=== PATIENT | male | born 1990 | race Caucasian/White ===

== ENCOUNTER 2016-11-28 13:04 | Emergency (ER) | payer MEDICAID ==
[2016-11-28 13:15] VITALS: RESP 16
--- NOTE | 2016-11-28 14:14 | EDPHY ---
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 marieor. He states that he had a high stress semester last week and a 4.0. He went home to [place] however states this g a who stated that she was trying to kill herself in his trying to get off Adderall. He states that this was very traumatic for him. He states that they have a she could room in her house that he was trying to conceal. He also states that he has had multiple arrests and trouble with the low when he was younger and this is prohibiting him from obtaining gainful employment. He states that in assisted they made him take lithium but he is not sure why. He denies suicidality or homicidality. He denies recent drug or alcohol ingestion. REVIEW OF SYSTEMS: Constitutional: Anxiety EENTM: denies: blurred vision, double vision, nose congestion Respiratory: denies: cough, shortness of breath Cardiac: denies: chest pain, irregular heart rate, lightheadedness, palpitations Gastrointestinal/Abdominal: denies: abdominal pain, diarrhea, nausea, vomiting, blood streaked stools Genitourinary: denies: dysuria, frequency, hematuria, pain Musculoskeletal: denies: joint pain, muscle pain Skin: denies: lesions, rash, jaundice, bruising Neurological: denies: headache, numbness, paresthesia, tingling, dizziness, weakness Hematologic/Lymphatic: denies: blood clots, easy bleeding, easy bruising Immunologic/allergic: denies: HIV/AIDS, transplant EXAM: GENERAL: Well-appearing, well-nourished HEAD: Atraumatic, normocephalic. EYES: Pupils equal round and reactive to light, extraocular movements intact, sclera anicteric, conjunctiva are normal. ENT: TMs normal, nares patent, oropharynx clear without exudates. Moist mucous membranes. NECK: Normal range of motion, supple without lymphadenopathy or JVD. LUNGS: Breath sounds clear to auscultation bilaterally and equal. No wheezes rales or rhonchi. HEART: Regular rate and rhythm without murmurs, rubs or gallops. ABDOMEN: Soft, nontender, normoactive bowel sounds. No guarding, no rebound. No masses appreciated. BACK: No CVA tenderness, no spinal tenderness, step-offs or deformities EXTREMITIES: Normal range of motion, no pitting or edema. No clubbing or cyanosis. NEUROLOGICAL: Cranial nerves II through XII grossly intact. Normal speech, normal gait. 5/5 strength, normal movement in all extremities, normal sensation PSYCH: Anxious, whispers when speaks, paranoid SKIN: Warm, dry, normal turgor, no visible rashes or lesions. Source: Patient Exam Limitations: No limitations - Personal History Current Tetanus/Diphtheria Vaccine: Unsure Current Tetanus Diphtheria and Acellular Pertussis (TDAP): Unsure - Medical/Surgical History Hx Asthma: No Hx Chronic Respiratory Disease: No Hx Diabetes: No Hx Cardiac Disease: No Hx Renal Disease: No Hx Cirrhosis: No Hx Alcoholism: No Hx HIV/AIDS: No Hx Splenectomy or Spleen Trauma: Yes Other PMH: psh- B inguinal hernia repair 05/2015, spleen repair, pneumonia, staph infection-buttocks - Family History Significant Family History: No pertinent family hx - Social History Smoking Status: Current every day smoker Alcohol Use: Sober Drug Use: None Constitutional: Initial Vital Signs Temperature (C) 36.4 C 11/28/16 13:08 Heart Rate 98 11/28/16 13:08 Respiratory Rate 16 11/28/16 13:08 Blood Pressure 134/75 H 11/28/16 13:08 O2 Sat (%) 95 11/28/16 13:08 O2 Delivery Mode Room Air Allergies/Adverse Reactions: No Known Allergies Allergy (Verified 11/28/16 13:08) Home Medications: Medication Instructions Recorded NK [No Known Home Meds] 05/13/16 Medical Decision Making ED Course/Re-evaluation: 3:30 p.m. the patient is medically clear for psychiatric evaluation. 4:20 p.m. the patient met with mental health. They recommended that he go to the outpatient crisis unit. He has not meeting criteria for detainer or hold. He is not suicidal. His primary request here today was to be hooked up with mental health counselor. 5:00 p.m. mental health feels that he needs to be on a hold and will evaluate him further . They will continue to evaluate. I have written a M1 hold and we will move him to a room. He continues to denies suicidality but is very afraid and states that he cannot care for himself. 8:30 p.m. the patient has been evaluated more extensively by mental health. They feel that he is safe to discharge the following the clinic tomorrow. He is primarily requesting resources and they have been given. They will lift the hold. Differential Diagnosis: Partial list of the Differential diagnosis considered include but were not limited to; depression, anxiety, psychosis, substance abuse and although unlikely based on the history and physical exam, I also considered head injury, infection. I discussed these differential diagnoses and the plan with the patient as well as the usual and expected course. The patient understands that the diagnosis is provisional and that in medicine we are not always correct and that further workup is often warranted. Usual and customary warnings were given. All of the patient's questions were answered. The patient was instructed to return to the emergency department should the symptoms at all worsen or return, otherwise to followup with the physician as we discussed. - Data Points Laboratory Results: Laboratory Results 11/28/16 14:54 11/28/16 14:54 11/28/16 11/28/16 14:54 14:43 WBC 6.33 10^3/uL (3.80-9.50) RBC 4.80 10^6/uL (4.40-6.38) Hgb 15.9 g/dL (13.7-17.5) Hct 43.9 % (40.0-51.0) MCV 91.5 fL (81.5-99.8) MCH 33.1 pg (27.9-34.1) MCHC 36.2 g/dL (32.4-36.7) RDW 11.9 % (11.5-15.2) Plt Count 199 10^3/uL (150-400) MPV 10.1 fL (8.7-11.7) Neut % (Auto) 54.0 % (39.3-74.2) Lymph % (Auto) 36.8 % (15.0-45.0) [place] % (Auto) 6.2 % (4.5-13.0) Eos % (Auto) 1.4 % (0.6-7.6) Baso % (Auto) 1.3 % (0.3-1.7) Nucleat RBC Rel Count 0.0 % (0.0-0.2) Absolute Neuts (auto) 3.42 10^3/uL (1.70-6.50) Absolute Lymphs (auto) 2.33 10^3/uL (1.00-3.00) Absolute Monos (auto) 0.39 10^3/uL (0.30-0.80) Absolute Eos (auto) 0.09 10^3/uL (0.03-0.40) Absolute Basos (auto) 0.08 10^3/uL (0.02-0.10) Absolute Nucleated RBC 0.00 10^3/uL (0-0.01) Immature Gran % 0.3 % (0.0-1.1) Immature Gran # 0.02 10^3/uL (0.00-0.10) Sodium 144 mEq/L (134-144) Potassium 4.1 mEq/L (3.5-5.2) Chloride 104 mEq/L (97-110) Carbon Dioxide 27 mEq/l (22-31) Anion Gap 13 mEq/L (8-16) BUN 15 mg/dL (7-23) Creatinine 0.9 mg/dL (0.7-1.3) Estimated GFR > 60 Glucose 94 mg/dL (70-100) Calcium 9.0 mg/dL (8.5-10.4) Urine Opiates Screen NEGATIVE (NEGATIVE) Urine Barbiturates NEGATIVE (NEGATIVE) Ur Phencyclidine Scrn NEGATIVE (NEGATIVE) Ur Amphetamine Screen NEGATIVE (NEGATIVE) U Benzodiazepines Scrn NEGATIVE (NEGATIVE) Urine Cocaine Screen NEGATIVE (NEGATIVE) U Marijuana (THC) Screen NON-NEGATIVE H (NEGATIVE) Ethyl Alcohol < 10 mg/dL (0-10) Medications Given: Discontinued Medications Haloperidol Lactate (Haldol Injection) 10 mg IM EDNOW ONE Stop: 11/28/16 18:03 Last Admin: 11/28/16 20:23 Dose: Not Given Lorazepam (Ativan Injection) 2 mg IM EDNOW ONE Stop: 11/28/16 18:04 Last Admin: 11/28/16 20:23 Dose: Not Given Departure - Departure Disposition: Home, Routine, Self-Care Clinical Impression: Stress Condition: Fair Instructions: Stress (ED) Referrals: NONE *PRIMARY CARE P,. [Primary Care Provider] - As per Instructions [facility] [Outside] - As per Instructions
[2016-11-28 15:04] LABS: % IMMATURE GRANULYOCYTES 0.3 % (0.0-1.1); ABSOLUTE IMMATURE GRANULOCYTES 0.02 10^3/uL (0.00-0.10); ADD DIFF? NO; ADD MORPH? NO; ADD SCAN? NO; ATYPICAL LYMPHOCYTE FLAG 10 (0-99); FRAGMENT RBC FLAG 0 (0-99); HEMATOCRIT 43.9 % (40.0-51.0); HEMOGLOBIN 15.9 g/dL (13.7-17.5); LEFT SHIFT FLG 0 (0-99); LIPEMIA HEMOLYSIS FLAG 90 (0-99); MEAN CELL HEMOGLOBIN 33.1 pg (27.9-34.1); MEAN CELL HEMOGLOBIN CONCENTR. 36.2 g/dL (32.4-36.7); MEAN CELL VOLUME 91.5 fL (81.5-99.8); MEAN PLATELET VOLUME 10.1 fL (8.7-11.7); PLATELET CLUMPS FLAG 0 (0-99); PLATELET COUNT 199 10^3/uL (150-400); RED CELL DISTRIBUTION WIDTH 11.9 % (11.5-15.2)
[2016-11-28 15:24] LABS: ANION GAP 13 mEq/L (8-16); CARBON DIOXIDE 27 mEq/l (22-31); CHLORIDE 104 mEq/L (97-110); CREATININE 0.9 mg/dL (0.7-1.3); ETHANOL SERUM < 10 mg/dL (0-10); GLOMERULAR FILTRATION RATE > 60; GLUCOSE 94 mg/dL (70-100); POTASSIUM 4.1 mEq/L (3.5-5.2); SODIUM 144 mEq/L (134-144)
[2016-11-28] MEDS ORDERED: HALOPERIDOL LACT 5 MG/ML INJ IM ONE (18:02)
[2016-11-28] MEDS ORDERED: LORazepam 2 MG/ML INJ IM ONE (18:03)
[2016-11-28 21:08] VITALS: BP 127/77; PULSE 56; TEMP 98.8; O2SAT 96
== END 2016-11-28 21:10 | disposition home or self-care (01) ==
DX: F43.9 Reaction to severe stress, unspecified (principal); F17.200 Nicotine dependence, unspecified, uncomplicated
CPT/HCPCS: 80305; G0480